=== PATIENT | male | born 1950 | race Caucasian/White ===

== ENCOUNTER 2023-01-21 10:07 | Emergency (ER) | payer MEDICARE, OTHER, SELFPAY ==
[2023-01-21] VITALS (19 sets, daily range): BP systolic 124–151; BP diastolic 75–98; PULSE 50–66; RESP 16; TEMP 36.6; O2SAT 94–99; BMI 29.0
--- NOTE | 2023-01-21 10:48 | ED_ITS ---
HPI - General Adult General Chief complaint: Chest Pain Stated complaint: lightheaded, tight chest- heart problems in past Time Seen by Provider: 01/21/23 10:48 History of Present Illness HPI narrative: Pt reports lightheadedness x1 week. Tightness/ heaviness in chest. Some SOB with exertion. Hx of 2 stents , states last stent placement had subtle symptoms 72-year-old man presenting to the emergency department with concern of intermittent chest tightness. Can be a little more short of breath with exertion now. No weight changes. He has been feeling a little lightheaded intermittently over the last week maybe 2. History of ?inner ear problem? years ago. Does have a history of cardiac stents. Not feeling sense of irregular heartbeats but prior to my seeing him I do note some PACs on monitor. These appear to be present and asymptomatic during our conversation. Is congested but he says this is relatively chronic with some postnasal drip. Was seen by his hematologist oncologist earlier this year with unremarkable cardiac ultrasound; admittedly was not a stress echo. Apparently need for prior stenting was determined ultimately by angiogram with normal stress echo and had more significant findings on coronary CT. No fever. No cough. With further reflection symptoms were worse when he bent over at least a symptom of lightheadedness, not dizziness. This sensation of chest pressure really though began today it is not much but given subtle presentation before is understandably concerned. Related Data Home Medications Medication Instructions Recorded Confirmed atorvastatin 40 mg tablet 40 mg PO QDAY 09/23/22 01/18/23 pantoprazole 40 mg tablet,delayed 40 mg PO QDAY 09/23/22 01/18/23 release Allergies Allergy/AdvReac Type Severity Reaction Status Date / Time No Known Drug Allergies Allergy Verified 01/18/23 11:19 Review of Systems Status of ROS: Reports: 6 or more systems reviewed and unremarkable except as noted in History and below [facility] Medical History Arthritis ?M19.90 - Unspecified osteoarthritis, unspecified site (ICD-10) Elevated cholesterol ?E78.00 - Pure hypercholesterolemia, unspecified (ICD-10) GERD (gastroesophageal reflux disease) ?K21.9 - Gastro-esophageal reflux disease without esophagitis (ICD-10) Chest pain ?R07.9 - Chest pain, unspecified (ICD-10) Surgical History History of appendectomy ?Z90.49 - Acquired absence of other specified parts of digestive tract (ICD- 10) History of cholecystectomy ?Z90.49 - Acquired absence of other specified parts of digestive tract (ICD- 10) H/O heart artery stent ?Z95.5 - Presence of coronary angioplasty implant and graft (ICD-10) H/O right knee surgery ?Z98.890 - Other specified postprocedural states (ICD-10) History of left hip replacement (~01/2021) ?Z96.642 - Presence of left artificial hip joint (ICD-10) Family History Father Parkinson disease Social History Smoking Status: Never smoker Do you use any of these nicotine containing products: None Second hand tobacco smoke exposure: No How often do you have a drink containing alcohol: 2-3 times a week How many standard drinks containing alcohol do you have on a typical day: 3 or 4 How often do you have six or more drinks on one occasion: Never AUDIT-C Alcohol total score: 4 Non-prescribed substance use: denies use Exam Narrative: Exam Narrative: Is pleasant. NAD. Quite calm actually. Of good energy. Congested timbre. Cranial nerves 2-12 intact. Pupils are 2-3 mm and equal. Briskly reactive and accommodating. TMs clear. Oropharynx is unremarkable. No facial swelling erythema or apparent tenderness. Lungs are clear. Heart in slow rate and regular rhythm. Intermittent ectopy. Abdomen is soft and nontender. Moving all extremities without difficulty; with good strength. He is well- perfused. Extremities are without edema. Const: Vital Signs, click to edit/add: Vital Signs - 24 hr 01/21/23 10:14 01/21/23 10:22 01/21/23 10:30 Temperature 97.9 F Pulse Rate 56 L 54 L Pulse Rate [Pulse Oximeter] 55 L Pulse Rate [orthos tatic lying] Pulse Rate [orthos tatic sitting] Pulse Rate [orthos tatic standing] Respiratory Rate 16 Blood Pressure Blood Pressure [Ri ght Upper Arm] 151/83 H Blood Pressure [or thostatic lying] Blood Pressure [or thostatic sitting] Blood Pressure [or thostatic standing ] Pulse Oximetry 98 98 99 Oxygen Delivery Me thod Room Air 01/21/23 10:45 01/21/23 11:00 01/21/23 11:01 Temperature Pulse Rate 55 L 54 L 51 L Pulse Rate [Pulse Oximeter] Pulse Rate [orthos tatic lying] Pulse Rate [orthos tatic sitting] Pulse Rate [orthos tatic standing] Respiratory Rate Blood Pressure 134/80 Blood Pressure [Ri ght Upper Arm] Blood Pressure [or thostatic lying] Blood Pressure [or thostatic sitting] Blood Pressure [or thostatic standing ] Pulse Oximetry 97 96 97 Oxygen Delivery Me thod 01/21/23 11:15 01/21/23 11:30 01/21/23 11:45 Temperature Pulse Rate 55 L 53 L 58 L Pulse Rate [Pulse Oximeter] Pulse Rate [orthos tatic lying] Pulse Rate [orthos tatic sitting] Pulse Rate [orthos tatic standing] Respiratory Rate Blood Pressure Blood Pressure [Ri ght Upper Arm] Blood Pressure [or thostatic lying] Blood Pressure [or thostatic sitting] Blood Pressure [or thostatic standing ] Pulse Oximetry 96 97 97 Oxygen Delivery Me thod 01/21/23 12:00 01/21/23 12:02 01/21/23 12:17 Temperature Pulse Rate 59 L 56 L 53 L Pulse Rate [Pulse Oximeter] Pulse Rate [orthos tatic lying] Pulse Rate [orthos tatic sitting] Pulse Rate [orthos tatic standing] Respiratory Rate Blood Pressure 133/78 Blood Pressure [Ri ght Upper Arm] Blood Pressure [or thostatic lying] Blood Pressure [or thostatic sitting] Blood Pressure [or thostatic standing ] Pulse Oximetry 98 98 97 Oxygen Delivery Me thod 01/21/23 12:30 01/21/23 12:35 01/21/23 12:39 Temperature Pulse Rate 56 L 54 L 61 Pulse Rate [Pulse Oximeter] Pulse Rate [orthos tatic lying] Pulse Rate [orthos tatic sitting] Pulse Rate [orthos tatic standing] Respiratory Rate Blood Pressure 136/77 125/98 H Blood Pressure [Ri ght Upper Arm] Blood Pressure [or thostatic lying] Blood Pressure [or thostatic sitting] Blood Pressure [or thostatic standing ] Pulse Oximetry 98 97 99 Oxygen Delivery Me thod 01/21/23 12:42 01/21/23 12:45 01/21/23 12:45 Temperature Pulse Rate 66 57 L Pulse Rate [Pulse Oximeter] Pulse Rate [orthos tatic lying] 50 L Pulse Rate [orthos tatic sitting] 64 Pulse Rate [orthos tatic standing] 62 Respiratory Rate Blood Pressure 125/75 Blood Pressure [Ri ght Upper Arm] Blood Pressure [or thostatic lying] 136/77 Blood Pressure [or thostatic sitting] 125/98 H Blood Pressure [or thostatic standing ] 125/75 Pulse Oximetry 97 94 Oxygen Delivery Me thod 01/21/23 13:00 01/21/23 13:02 Temperature Pulse Rate 55 L 56 L Pulse Rate [Pulse Oximeter] Pulse Rate [orthos tatic lying] Pulse Rate [orthos tatic sitting] Pulse Rate [orthos tatic standing] Respiratory Rate Blood Pressure 124/82 Blood Pressure [Ri ght Upper Arm] Blood Pressure [or thostatic lying] Blood Pressure [or thostatic sitting] Blood Pressure [or thostatic standing ] Pulse Oximetry 97 97 Oxygen Delivery Me thod Documenting provider has reviewed patient's vital signs: yes Course Vital Signs Vital signs: Initial Vital Signs Temperature 97.9 F 01/21/23 10:14 Temperature Source Temporal Artery Scan 01/21/23 10:14 Pulse Rate 55 L 01/21/23 10:14 Respiratory Rate 16 01/21/23 10:14 Blood Pressure 151/83 H 01/21/23 10:14 Blood Pressure Mean 105 01/21/23 10:14 Blood Pressure Position Sitting 01/21/23 10:14 Pulse Oximetry 98 01/21/23 10:14 Oxygen Delivery Method Room Air 01/21/23 10:14 Vital Signs Temperature 97.9 F 01/21/23 10:14 Pulse Rate 55 L 01/21/23 10:14 Respiratory Rate 16 01/21/23 10:14 Blood Pressure 151/83 H 01/21/23 10:14 Pulse Oximetry 98 01/21/23 10:14 Oxygen Delivery Method Room Air 01/21/23 10:14 Temperature 97.9 F 01/21/23 10:14 Pulse Rate 56 L 01/21/23 13:02 Respiratory Rate 16 01/21/23 10:14 Blood Pressure 124/82 01/21/23 13:02 Pulse Oximetry 97 01/21/23 13:02 Oxygen Delivery Method Room Air 01/21/23 10:14 Medical Decision Making MDM Narrative Medical decision making narrative: Primary concern of arrhythmia or possible cardiac ischemic event. I doubt CVA. I think it is reasonable to check labs and monitor on aquaculture farmer for a time. Will look at chemistries as well. Look for pneumonia, pneumothorax, evidence of pulmonary embolus. Orthostatically symptomatic? Having some PACs on monitor though I am not convinced these are symptomatic. Bradycardic as noted. Orthostatics were done and normal. No clear evidence otherwise of cardiovascular ischemic injury. Chest x-ray reviewed by me is with normal cardiac silhouette, no infiltrate or pneumothorax. I think it is likely that congestive symptoms are playing a role in some of these symptoms. Overall well during time in the emergency department. See patient discharge plan Lab Data Lab results reviewed: Yes I reviewed the patient's lab results Labs: Lab Results 01/21/23 01/21/23 Range/Units 10:44 10:58 WBC 5.96 (4.50-11.00) K/uL RBC 4.90 (4.30-5.90) m/uL Hgb 15.2 (13.5-17.5) gm/dL Hct 45.2 (37.0-53.0) % MCV 92 (80-100) fL MCH 31 (26-34) pg MCHC 34 (32-36) gm/dL RDW Coeff of Jeanette 12.2 (11.5-15.5) % Plt Count 323 (140-440) K/uL Neut % (Auto) 64.2 (42.0-72.0) % Lymph % (Auto) 24.3 (20-44) % Lane % (Auto) 9.2 (0.0-11.0) % Eos % (Auto) 1.8 (0.0-7.0) % Baso % (Auto) 0.5 (0.0-3.0) % Neut # (Auto) 3.82 (1.7-7.0) K/uL Lymph # (Auto) 1.45 (0.90-2.90) K/uL Lane # (Auto) 0.50 (0.00-0.90) K/UL Eos # (Auto) 0.11 (0.00-0.50) K/uL Baso # (Auto) 0.03 (0.00-0.30) K/uL Abs Immat Gran (auto) 0.00 (0.00-0.30) K/uL Imm/Tot Granulo (auto) 0.0 % D-Dimer Quant (PE/DVT) 0.42 (0.00-0.50) ug/ml Sodium 138 (135-149) mmol/L Potassium 4.2 (3.6-5.1) mmol/L Chloride 104 (96-114) mmol/L Carbon Dioxide 26 (20-32) mmol/L Anion Gap 8 (7-15) mEq/L BUN 16 (7-30) mg/dL Creatinine 0.7 (0.5-1.5) mg/dL Estimated Creat Clear 75.46 Estimated GFR 98 ml/min Glucose 113 (60-115) mg/dL Calcium 9.4 (8.4-10.6) mg/dL Magnesium 2.3 (1.5-2.6) mg/dL Troponin I < 0.01 L (0.01-0.04) ng/mL C-Reactive Protein < 0.5 L (0.5-1.0) mg/dL NT-Pro-B Natriuret Pep 203 pg/mL TSH 4.260 H (0.270-4.20) uIU/mL POC Troponin I 0.00 L (0.01-0.04) ng/ml ECG Data Attestation: I personally reviewed and interpreted this ECG as follows: (Sinus bradycardia rate of 52. No acute ischemic changes appreciated. Has been demonstrating some PACs otherwise.) Discharge Plan Discharge Clinical Impression: Lightheadedness, Premature atrial contractions, Head congestion, Chest pressure Patient Disposition: Home, Self-Care Condition: Stable Additional Instructions: Stay well-hydrated. Consider taking pseudoephedrine for drying and decongestion. Probably the 12 hour formulation is most effective. I would check in with your cardiology clinic to see if they would like to evaluate you further. Otherwise return for marked increase in lightheadedness a, dizziness, increasing shortness of breath particularly associated with increasing chest pressure. Prescriptions: No Action atorvastatin 40 mg tablet 40 mg PO QDAY pantoprazole 40 mg tablet,delayed release (DR/EC) 40 mg PO QDAY Follow Up/Referrals: Elio Shay MD [Primary Care Provider] - Stand Alone Forms: [employer] Info Instructions
[2023-01-21 10:56] LABS: Basophils Absolute Auto 0.03 K/uL (0.00-0.30); Basophils Percent Auto 0.5 % (0.0-3.0); Eosinophils Absolute Auto 0.11 K/uL (0.00-0.50); Eosinophils Percent Auto 1.8 % (0.0-7.0); Hematocrit 45.2 % (37.0-53.0); Hemoglobin* 15.2 gm/dL (13.5-17.5); Lymphocytes Absolute Auto 1.45 K/uL (0.90-2.90); Lymphocytes Percent Auto 24.3 % (20-44); Mean Corpuscular HGB Conc 34 gm/dL (32-36); Mean Corpuscular Hemoglobin 31 pg (26-34); Mean Corpuscular Volume 92 fL (80-100); Monocytes Percent Auto 9.2 % (0.0-11.0); Neutrophils Absolute Auto 3.82 K/uL (1.7-7.0); Neutrophils Percent Auto 64.2 % (42.0-72.0); Platelet Count* 323 K/uL (140-440); RDW Coefficient of Variation % 12.2 % (11.5-15.5); White Blood Count* 5.96 K/uL (4.50-11.00)
--- NOTE | 2023-01-21 11:13 | CRLHL7_ITS ---
For Patients: As a result of the Century Cures Act, medical imaging exams and procedure reports are released immediately into your electronic medical record. You may view this report before your referring provider. If you have questions, please contact your health care provider. INDICATION: Chest discomfort TECHNIQUE: Chest 1 views. COMPARISON: Chest radiograph: October 13, 2020 FINDINGS: Cardiovasculature and mediastinum: Heart size and vasculature are normal in caliber and appearance. Lungs and pleural spaces: Similar appearing elevation of the right hemidiaphragm. No sign of infiltrate or mass. No sign of pleural effusion. No pneumothorax. Bones and soft tissues: No significant findings. IMPRESSION: No acute cardiopulmonary process. Dictated by Kyler Eng MD @ 01/21/2023 12:11:56 PM (Electronically Signed)
[2023-01-21 11:15] LABS: Slide Review Reflex No
[2023-01-21 11:19] LABS: Chloride* 104 mmol/L (96-114); Potassium* 4.2 mmol/L (3.6-5.1); Sodium* 138 mmol/L (135-149)
[2023-01-21 11:20] LABS: Magnesium* 2.3 mg/dL (1.5-2.6)
[2023-01-21 11:21] LABS: Creatinine* 0.7 mg/dL (0.5-1.5); Est. Creatinine Clearance* 75.46; Estimated Glomerular Filt Rate 98 ml/min
[2023-01-21 11:22] LABS: Anion Gap 8 mEq/L (7-15); Blood Urea Nitrogen* 16 mg/dL (7-30); Carbon Dioxide* 26 mmol/L (20-32)
[2023-01-21 11:23] LABS: Calcium* 9.4 mg/dL (8.4-10.6); Glucose* 113 mg/dL (60-115)
[2023-01-21 11:24] LABS: D Dimer Quantitative* 0.42 ug/ml (0.00-0.50)
[2023-01-21 11:27] LABS: C Reactive Protein* < 0.5 mg/dL (0.5-1.0)
[2023-01-21 11:38] LABS: NT Pro B Type NatriureticPept* 203 pg/mL; Troponin I* < 0.01 ng/mL (0.01-0.04)
== END 2023-01-21 13:18 | disposition home or self-care (01) ==
PROVIDERS: Emergency Provider Family Medicine; PCP Family Medicine
DX: R42 Dizziness and giddiness (principal); I49.1 Atrial premature depolarization; R07.89 Other chest pain
CPT/HCPCS: 36415; 71045; 80048; 83735; 83880; 84443; 84484; 85025; 85379; 86140; 93005; 99284

== ENCOUNTER 2023-01-26 09:05 | Outpatient (CLI) | payer MEDICARE, OTHER, SELFPAY ==
--- NOTE | 2023-01-26 09:15 | CRLHL7_ITS ---
For Patients: As a result of the Century Cures Act, medical imaging exams and procedure reports are released immediately into your electronic medical record. You may view this report before your referring provider. If you have questions, please contact your health care provider. Indication: Right hip pain Procedure : Informed consent was obtained. The site was marked. Time-out was performed. The skin of the right hip was cleansed with ChloraPrep. A sterile drape was placed. 8 cc of 1 percent lidocaine was administered for superficial anesthesia. Subsequently a 22 gauge spinal needle was introduced into the right hip joint under intermittent fluoroscopic guidance. Subsequently 7 cc 1 percent lidocaine and 2 cc 40 milligram/cc Depo-Medrol injected into the right hip joint. The needle was removed and hemostasis achieved with direct pressure. A dressing was placed. The patient tolerated the procedure well without immediate complication. Total fluoroscopy time 7 seconds. Impression: Successful fluoroscopically guided right hip injection with 80 milligrams of Depo-Medrol. Dictated by Samir Singh MD @ 01/26/2023 10:34:34 AM (Electronically Signed)
== END 2023-01-26 09:06 | disposition home or self-care (01) ==
LOC: RAD 09:05
PROVIDERS: PCP Family Medicine; Visit Provider Orthopaedic Surgery Sports Medicine
DX: M16.11 Unilateral primary osteoarthritis, right hip (principal)
CPT/HCPCS: 20610; 77002; J1030; Q9966

== ENCOUNTER 2023-05-11 07:11 | Day surgery (SDC) | payer MEDICARE, OTHER, SELFPAY ==
[2023-05-11] VITALS (26 sets, daily range): BP systolic 106–161; BP diastolic 52–95; PULSE 44–72; RESP 16–18; TEMP 35.6–36.7; O2SAT 91–100; BMI 30.2
--- NOTE | 2023-05-11 07:51 | W.PM.H&PU ---
History & Physical Update History & Physical Update H&P Reviewed and patient assessed: No changes noted
--- NOTE | 2023-05-11 07:52 | XR_ITS ---
Patient: ALFREDA RAYGOZA Facility:?[facility] Patient ID:?[id number] Site Patient ID:?[id number]. Site :?[id number] Study:?XRay-Hip Right POST OP-05/11/2023 3:55:33 PM Ordering Physician:VALE Final Report: Indication: Postop Technique: AP hip centered pelvis and lateral view right hip Findings/Impression: Hardware from a right total hip arthroplasty is in satisfactory position. Bone alignment is normal. No sign of acute fracture. Postop changes are within normal limits. Dictated by Samir Singh MD @ 05/12/2023 8:57:33 AM Signed by:?Samir Singh MD @05/12/2023 8:57:33 AM (Electronic Signature)
[2023-05-11] MEDS: ACETAMINOPHEN 500 MG TABLET 1000 MG PO ×3 (08:00→21:37)
[2023-05-11] MEDS: OXYCODONE (CR) 10 MG TAB.ER.12H PO (08:00)
[2023-05-11] MEDS: SODIUM CHLORIDE 0.9 % (FLUSH) 10 ML SYRINGE IVF (08:16)
[2023-05-11] MEDS: LACTATED RINGERS 1000 ML 1,000 ML 100 ML IV ×2 (08:16→11:05)
[2023-05-11] MEDS: MIDAZOLAM HCL 1 MG/ML inj IVP (09:12)
[2023-05-11] MEDS: fentaNYL 100 MCG/2 ML inj IVP (09:12)
--- NOTE | 2023-05-11 09:15 | XR_ITS ---
Patient: ALFREDA RAYGOZA Facility:?[facility] Patient ID:?[id number] Site Patient ID:?[id number]. Site :?[id number] Study:?XRay-Hip Right INTRAOP-05/11/2023 12:26:16 PM Ordering Physician:BROOKLYN Final Report: Indication: Hip replacement surgery Technique: AP hip fluoroscopic images. Fluoroscopy time 39.7 seconds. Findings/Impression: Hardware from a right total hip arthroplasty is in satisfactory position. Dictated by Samir Singh MD @ 05/11/2023 12:38:01 PM Signed by:?Samir Singh MD @05/11/2023 12:38:01 PM (Electronic Signature)
--- NOTE | 2023-05-11 09:50 | SUR.PREOP ---
TIME?OUT:?0911 PT/Elli Rogers RN/Dr. Bertin MDA?VERIFICATION?OF?SURGICAL?SITE right hip,?PROCEDURE,?AND?CONSENT OBTAINED?PRIOR?TO?INVASIVE?PROCEDURE.
[2023-05-11] MEDS: CEFAZOLIN 2 GM in 0.9 % SODIUM CHLORIDE Mini-bag 100 ML IVPB ×2 (10:30→16:25)
[2023-05-11] MEDS: TRANEXAMIC ACID 100 MG/ML INJ 1000 MG IV (10:33)
--- NOTE | 2023-05-11 12:22 | PM.ORPRC ---
Procedure Note Date of procedure: 05/11/23 Procedure: PREOPERATIVE DIAGNOSIS: 1. Right hip osteoarthritis, severe, primary POSTOPERATIVE DIAGNOSIS: 1. Right hip osteoarthritis, severe, primary PROCEDURE: 1. Right total hip arthroplasty-anterior approach 2. 76280 - intraoperative fluoroscopy up to 1 hour. SURGEON: Kenrick Giraldo MD. CONSULTING HR PROFESSIONAL: Addi Mcclellan PA-C; COLLEEN Schroeder - Of note, a skilled hotel assistant general manager was critical for this case to aid in patient positioning, tissue retraction, limb manipulation/positioning, and closure. ANESTHESIA: General endotracheal anesthetic EBL: 400 mL IMPLANTS: DePuy J&J uncemented total hip [place] cup size 54, hole eliminator, +0 neutral liner Actis stem, standard offset, size 9 +5 mm ceramic 36 mm head COMPLICATIONS: None evident INDICATIONS: The patient is a pleasant 73-year-old male who has experienced severe right hip pain and difficulty bearing weight. Workup included x-rays which revealed severe osteoarthrosis in the hip. Given the deformity, the dysfunction, and the pain, as well as the failure of nonoperative management, recommendation was made for surgery. FINDINGS: Full-thickness chondral loss throughout the femoral head especially superiorly as well as acetabulum. Osteophytosis around acetabulum perimeter as well as femoral head/neck junction small effusion upon entering the joint. DESCRIPTION OF PROCEDURE: Following a thorough discussion of risks, benefits, and alternatives consent was obtained and the right hip was marked. The patient was brought to the operating room and placed supine on the operating table. Induction of anesthesia was undertaken. 2 g IV Ancef and 1 g tranexamic acid was administered within 1 hr of incision preoperatively. Proper time-out was performed identifying proper patient, site, procedure. The operative extremity was prepped and draped in the appropriate sterile fashion using ChloraPrep after the patient was positioned on the [place] table with head in neutral alignment and all bony prominences well padded. C-arm fluoroscopic imaging was utilized to confirm proper pelvis rotation and position, and to get true AP films of both the contralateral left, and the affected right hip. This is for comparison. A longitudinal incision was made starting approximately 1 cm distal to the ASIS, and 3-4 cm lateral. The incision was extended distally aiming toward the lateral border the patella. Sharp incision through skin and bovie cautery through the subcutaneous tissue allowed identification of the TFL fascia. This was sharply divided, and the fascia bluntly released from the muscle fibers as we dissected medial. Upon coming to the medial border, we were able to retract the TFL laterally, and penetrated the deeper fascia and identify the crossing circumflex vessels. These were ligated/cauterized. The rectus was elevated from the capsule, and retractors placed laterally and medially along the femoral neck to help with visualization of the capsule. We then performed an inverted T capsulotomy. The capsule was tagged for later repair. Retractors were placed inside the capsule. The femoral neck was visualized after releasing medially down to the lesser trochanter, along the saddle laterally, and up onto the acetabulum. The femoral neck cut was made in line with our preoperative templating. The head was removed in a single piece, and sized. We turned our attention to acetabular preparation. Initially, the labrum was resected from around the perimeter, the pulvinar was excised, allowing us to visualize the false wall. We started the reaming with a 43 mm reamer. This was medialized down to the true wall. We then enlarged our reamers sequentially up to one size less than the selected cup size. We trialed at the same size and found it to have an excellent fit. The selected cup was then opened, inserted, and impacted in line with the goal of 40? of abduction, and 20-25? of anteversion. This was confirmed on C-arm fluoroscopic imaging to be in the appropriate/goal position. Once the cup was placed we placed a hole eliminator and a liner consistent with preop planning. Attention was turned to the femoral preparation. The limb was extended, externally rotated, and adducted. The posteromedial capsule was released, as retractors were placed allowing excellent access to the proximal femur. Initially a box sealing machine operator was followed by canal finder followed by various broaches. We broached sequentially up to the size noted above, found it to have excellent rotational control, and trialing various heads and necks, revealed that appropriate neck offset, and the above noted head size provided the greatest stability, and anabaptism of length, and offset. C-arm fluoroscopic imaging confirmed position of the stem, as well as leg lengths, which were compared with the pre procedure all fluoroscopic images. Trial implants were removed, the real femoral stem inserted, as was the appropriate head. After reducing, the leg was placed through range of motion and stability was confirmed anterior, posterior, and lateral. A 3 min Betadine soak was then performed, and thorough irrigation with normal saline followed. Closure of the capsule was performed with #1 PDS. Bleeding was confirmed to be controlled at this stage, and the TFL fascia was closed with #0 strata fix. Subcutaneous, and subcuticular closure was performed with 2-0 Vicryl and 4-0 Monocryl, respectively. Dressings were applied, and the patient was awoken from anesthesia and transferred the PACU in stable condition. A skilled hotel assistant general manager was critical for this case to aid in patient positioning, tissue retraction, acetabular and proximal femoral exposure, limb manipulation/positioning, dislocation/relocation, patient safety, and closure. PLAN: 1. Weight bear as tolerated operative extremity. 2. 23 hr perioperative antibiotics. 3. Ice. 4. PT/OT consults for ambulation assistance/mobility education. 5. Social work consult for discharge planning. 6. DVT prophylaxis with at SCDs, Zaid Vinode, and Xarelto x5 days followed by aspirin for a total of 1 month.
--- NOTE | 2023-05-11 12:24 | W.ANESCHARGE ---
Anesthesia Charges Start Date/Time Anesthesia Start Date: 05/11/23 Anesthesia Start Time: 10:17 Stop Date/Time Anesthesia Stop Date: 05/11/23 Anesthesia Stop Time: 12:59 Summary Extremes of Age - Over 70 or under 1: MDA
--- NOTE | 2023-05-11 12:25 | P.NB_ITS ---
Nerve Block Nerve Block Time Seen by Provider: 09:11 Date Seen: 05/11/23 Type of block requested by surgeon for post-operative analgesia: BRENT/LFCN Side: right Time out performed: Yes Verification of patient name: Yes Verification of date of : Yes Site marking: site marked Name of person performing procedure: Bertin Continuous monitoring Was continuous monitoring of O2 sat, B/P, local area network systems adminstrator, recorded every 15 minutes?: Yes Procedure Checklist: sterile prep, needles and gloves Ultrasound guided. Images saved: Yes Medications given in 5ml increments after negative aspiration: Ropivicaine %: 0.5 mL: 30 Needle gauge: 20 Decadron (mg): 10 Precedex (mcg): 25 Patient tolerated procedure well: Yes Additional comments: Needle noted below psoas tendon needle noted adjacent to LFCN Block Charges Block Charge (with Pro Fee): Other Periph Nerve Block Use of Ultrasound Machine for Block: Yes- US Guidance/pain block
--- NOTE | 2023-05-11 13:03 | W.ANESCHARGE ---
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
[2023-05-11] MEDS: HYDROmorphone 0.5 mg/0.5 ml inj IVP ×2 (13:14→14:57)
--- NOTE | 2023-05-11 15:44 | PM.IMCN1 ---
Date of Consult Patient: Ricardo Patient Consult date: 05/11/23 Requesting Physician: Orthopedics Primary Care Provider: Elio Sahy MD Consult Narrative Reason for consult: bradycardia Narrative: Theo De La Garza is a 73 year old male with a h/o CAD who underwent an elective RTHA today by Dr. Giraldo for severe osteoarthritis. Postoperatively he is noted to have bradycardia. He was asymptomatic while sitting in the chair, but a little dizzy while getting back into bed for the EKG. His HR at baseline (from previous records at our hospital and [facility] records) is 50's to 60's and he is not on any rate slowing medications. He had an outpatient cardiology visit on 01/26/24 for palpitations and chest discomfort. He had a Kardia device which had a question of atrial fibrillation. He then had coronary CT angiogram and Zio patch peer CO pads demonstrated primarily sinus rhythm with an average BG of 63 beats per minute, 98 episodes of supraventricular tachycardia lasting at the most 14.3 seconds with occasional ectopy. However, he triggered his device 5 times during sinus rhythm and with ectopy, but not with any of the episodes of supraventricular tachycardia. His coronary CT angiogram demonstrated patent proximal and mid left anterior descending artery stents with otherwise no significant obstructive disease. His aortic sinus was 41 x 40 x 39 mm. His personal fitness manager, Dr. Bowers, spoke with the patient about these results and discuss the use of low-dose beta-blockers, however noted that he had no symptoms of SVT and with a low heart rate he had a higher risk of side effects from them. The patient opted for no treatment at that time. Review of Systems Status of ROS: Reports: 10 or more systems reviewed and unremarkable except as noted in History and below [facility] Medical History (Updated 05/11/23 @ 16:15 by Kelly Jones MD) Esophageal stenosis ?K22.2 - Esophageal obstruction (ICD-10) Coronary artery disease ?I25.10 - Atherosclerotic heart disease of [place] coronary artery without angina pectoris (ICD-10) BPH (benign prostatic hyperplasia) ?N40.0 - Benign prostatic hyperplasia without lower urinary tract symptoms (ICD-10) Arthritis ?M19.90 - Unspecified osteoarthritis, unspecified site (ICD-10) Elevated cholesterol ?E78.00 - Pure hypercholesterolemia, unspecified (ICD-10) GERD (gastroesophageal reflux disease) ?K21.9 - Gastro-esophageal reflux disease without esophagitis (ICD-10) Chest pain ?R07.9 - Chest pain, unspecified (ICD-10) Surgical History (Updated 05/11/23 @ 16:12 by Kelly Jones MD) S/P total right hip arthroplasty ?Z96.641 - Presence of right artificial hip joint (ICD-10) History of appendectomy ?Z90.49 - Acquired absence of other specified parts of digestive tract (ICD-10) History of cholecystectomy ?Z90.49 - Acquired absence of other specified parts of digestive tract (ICD-10) H/O heart artery stent ?Z95.5 - Presence of coronary angioplasty implant and graft (ICD-10) H/O right knee surgery ?Z98.890 - Other specified postprocedural states (ICD-10) History of left hip replacement (~01/2021) ?Z96.642 - Presence of left artificial hip joint (ICD-10) Family History (Updated 05/11/23 @ 16:01 by Kelly Jones MD) Father Parkinson disease Mother Atrial fibrillation Dementia Social History (Updated 05/11/23 @ 16:05 by Kelly Jonse MD) Narrative: Retired from [place] [employer]. Denies tobacco use. Drinks 1-2 alcoholic drinks once a week. Denies recreational drug use. What is your current living situation?: I presently have a place to live In the past 12 months, utilities in danger of being shut off: no In past 12 months, lack of transportation kept you from medical appts, meetings, work, or getting things needed for daily living: no In the past 12 mos, have been you worried that your food would run out before you had money to buy more?: never true In the past 12 mos, the food you bought just didn't last and you didn't have money to buy more?: never true Smoking Status: Never smoker Do you use any of these nicotine containing products: None Second hand tobacco smoke exposure: No How often do you have a drink containing alcohol: 2-3 times a week How many standard drinks containing alcohol do you have on a typical day: 1 or 2 How often do you have six or more drinks on one occasion: Never AUDIT-C Alcohol total score: 3 Non-prescribed substance use: denies use Caffeine: No How often does anyone, including family, friends and others, physically hurt you: never How often does anyone, including family, friends and others, insult or talk down to you: never How often does anyone, including family, friends and others, threaten you with harm: never How often does anyone, including family, friends and others, scream or curse at you: never Meds Home Medications and Allergies Home Medications Medication Instructions Recorded Confirmed Type atorvastatin 40 mg tablet 40 mg PO HS 09/23/22 05/11/23 History pantoprazole 40 mg tablet,delayed 40 mg PO QDAY 09/23/22 05/11/23 History release aspirin 81 mg chewable tablet 81 mg PO DAILY 05/11/23 05/11/23 History cholecalciferol (vitamin D3) 50 50 mcg PO DAILY 05/11/23 05/11/23 History mcg (2,000 unit) capsule coenzyme Q10 100 mg capsule 200 mg PO DAILY 05/11/23 05/11/23 History niacin 100 mg tablet 100 mg PO DAILY 05/11/23 05/11/23 History Allergies Allergy/AdvReac Type Severity Reaction Status Date / Time No Known Drug Allergies Allergy Verified 05/11/23 07:30 Exam Narrative: Exam Narrative: General: No acute distress. Awake alert oriented x3. HEENT: Normocephalic atraumatic, pupils equally round and reactive to light and accommodation. Oropharynx clear. Mucous membranes are dry. No cervical lymphadenopathy, thyromegaly or carotid bruits. No JVD. Cardiovascular: Bradycardic, regular. No murmurs, gallops, or rubs. Chest: No increased work of breathing. Clear to auscultation bilaterally. No crackles or wheezes. Abdomen: Bowel sounds present. Soft, nondistended, nontender. No hepatosplenomegaly or masses. Extremities: Right hip bandage is clean, dry, and intact. No bruising or swelling around the bandage. No edema, no cyanosis or clubbing. Skin: Mild pallor. No jaundice, no rashes. Const: Vital Signs, click to edit/add: Vital Signs - 24 hr 05/11/23 08:13 05/11/23 09:12 05/11/23 09:20 Temperature 97.9 F Pulse Rate 60 53 L 50 L Respiratory Rate 16 16 16 Blood Pressure 125/95 H 145/78 H 110/66 Pulse Oximetry 97 98 95 Oxygen Delivery Me thod Room Air Nasal Cannula Nasal Cannula Oxygen Flow Rate 2 2 Fraction of Inspir ed Oxygen 05/11/23 09:30 05/11/23 12:55 05/11/23 13:00 Temperature 96.7 F L Pulse Rate 47 L 49 L 49 L Respiratory Rate 16 16 16 Blood Pressure 106/61 129/78 116/74 Pulse Oximetry 96 94 98 Oxygen Delivery Me thod Nasal Cannula Nasal Cannula Oxygen Flow Rate 2 2 Fraction of Inspir ed Oxygen 94 05/11/23 13:05 05/11/23 13:10 05/11/23 13:15 Temperature Pulse Rate 45 L 46 L 44 L Respiratory Rate 16 16 16 Blood Pressure 133/78 131/75 129/70 Pulse Oximetry 100 99 98 Oxygen Delivery Me thod Oxygen Flow Rate 2 Fraction of Inspir ed Oxygen 100 05/11/23 13:20 05/11/23 13:25 05/11/23 13:30 Temperature 96.6 F L 97.2 F L Pulse Rate 46 L 50 L 48 L Respiratory Rate 16 16 16 Blood Pressure 139/71 129/64 126/67 Pulse Oximetry 100 97 94 Oxygen Delivery Me thod Oxygen Flow Rate Fraction of Inspir ed Oxygen Assessment and Plan Assessment and plan (1) Bradycardia: Problem comment: I suspect this is a mixture of history of low-grade bradycardia, anesthesia, and vasovagal response from getting up in the chair. EKG is reassuring. Monitor on telemetry. Give a fluid bolus. Monitor symptoms and blood pressure overnight. Status: Acute (2) S/P total right hip arthroplasty: Problem comment: 05/11/23 Kristal - routine postop care - VTE prophylaxis with rivaroxaban for 5 days then transitioning to aspirin twice a day for month Status: Acute (3) Osteoarthritis of right hip: Problem comment: mild-moderate, with areas of full-thickness cartilage loss Status: Chronic (4) Coronary artery disease: Problem comment: 2 stents placed in his coronary arteries in 2016 - asymptomatic. Recommend daily low-dose aspirin even while on Xarelto in this postoperative period. Status: Chronic
[2023-05-11] MEDS: ONDANSETRON 2 MG/ML inj 4 MG IVP (16:31)
[2023-05-11] MEDS: LACTATED RINGERS 1000 ML 1,000 ML IV (16:33)
--- NOTE | 2023-05-11 19:41 | PC.NURSE ---
End of Shift: Patient alert and oriented x4. VSS, PRN dilauded administered x1 w/relief. Patient on Tele, Sinus [place] w/occasional PVC's. Dressing to right hip, C/D/I. Patient tolerating a reg. diet. PRN zofran administered x1 w/relief. Patient up to chair for meals and ambulating to BR w/walker and GB. Voiding regularly.
[2023-05-11] MEDS: SENNOSIDES 1 TAB TABLET 2 TAB PO (21:38)
[2023-05-11] MEDS: ATORVASTATIN CALCIUM 40 MG TABLET PO (21:38)
[2023-05-11] MEDS: HYDROCODONE-ACETAMIN 5-325 MG 1 TAB PO (21:39)
[2023-05-12] MEDS: CEFAZOLIN 2 GM in 0.9 % SODIUM CHLORIDE Mini-bag 100 ML IVPB (00:27)
[2023-05-12] MEDS: HYDROCODONE-ACETAMIN 5-325 MG 1 TAB PO ×3 (01:41→10:08)
[2023-05-12 02:00] VITALS: BP 132/66; PULSE 79; RESP 18; O2SAT 95
--- NOTE | 2023-05-12 05:10 | PC.NURSE ---
Patient pleasant, alert and oriented. Assist of one with walker. Tolerating regular diet. Given PRN [place] for pain rated 4-6/10. Dressing to right hip clean, dry and intact.?
[2023-05-12] MEDS: OMEPRAZOLE 20 MG CAPSULE DR 40 MG PO (06:28)
[2023-05-12 07:00] VITALS: BP 133/87; PULSE 68; RESP 16; TEMP 36.8; O2SAT 95
[2023-05-12 07:03] LABS: Basophils Percent Auto 0.1 % (0.0-3.0); Eosinophils Percent Auto 0.1 % (0.0-7.0); Hematocrit 35.5 % (37.0-53.0); Hemoglobin* 12.2 gm/dL (13.5-17.5); Immature Granulocytes Pct Auto 0.2 %; Lymphocytes Percent Auto 9.7 % (20-44); Mean Corpuscular HGB Conc 34 gm/dL (32-36); Mean Corpuscular Hemoglobin 32 pg (26-34); Mean Corpuscular Volume 92 fL (80-100); Monocytes Percent Auto 12.3 % (0.0-11.0); Neutrophils Percent Auto 77.6 % (42.0-72.0); Platelet Count* 286 K/uL (140-440); RDW Coefficient of Variation % 12.3 % (11.5-15.5); Red Blood Count 3.85 m/uL (4.30-5.90); White Blood Count* 11.96 K/uL (4.50-11.00)
[2023-05-12 07:08] LABS: Slide Review Reflex No
[2023-05-12 07:15] LABS: Sodium* 136 mmol/L (135-149)
[2023-05-12 07:16] LABS: Potassium* 4.4 mmol/L (3.6-5.1)
[2023-05-12 07:19] LABS: Blood Urea Nitrogen* 14 mg/dL (7-30); Creatinine* 0.6 mg/dL (0.5-1.5); Est. Creatinine Clearance* 74.35; Estimated Glomerular Filt Rate 102 ml/min
[2023-05-12 08:58] VITALS: PULSE 73
[2023-05-12] MEDS: ASPIRIN 81 MG TAB.CHEW PO (09:08)
[2023-05-12] MEDS: SENNOSIDES 1 TAB TABLET 2 TAB PO (09:08)
[2023-05-12] MEDS: COENZYME Q10 100 MG CAPSULE PO (09:08)
[2023-05-12] MEDS: RIVAROXABAN 10 MG TABLET PO (09:09)
--- NOTE | 2023-05-12 11:00 | PM.ORPN ---
Subjective Subjective Date Seen: 05/12/23 Principal diagnosis: Status postop day 1, right total hip arthroplasty - anterior approach Interval history: Patient reports doing well. Some aching discomfort right hip. No acute events over night. Pain managed with scheduled and PRN medications, ice (hydrocodone appears to work better for him due to history of mentation issues with Percocet. No recent fevers, chills, or aches; no numbness or tingling distally. DVT prophylaxis: Rivaroxaban, and continuing 81 mg aspirin once daily, bilateral knee high Zaid stockings, SCDs, walking. Denies fevers, chills, aches, N/V, CP, SOB/MARK, or lightheadedness. No flatus to date. Ortho Exam Narrative Exam Narrative: -Patient appears comfortable in reclined; no apparent acute distress. Spouse present -Alert and oriented times 3 -Operative hip swollen; soft tissues supple; no obvious erythema. Ecchymosis minimal. Warmth appropriate -Surgical dressing clean, dry, intact; no obvious drainage, no erythematous streaking peripheral to the bandage -Bilateral calves soft and supple; no significant swelling, edema, tenderness, erythema, discoloration, warmth, or palpable cords -2+ DP/PT pulses, intact dermatomes and myotomes distally (5/5 strength). Mild numbness about the lateral femoral cutaneous nerve distribution. Const Vital Signs, click to edit/add: Vital Signs - 24 hr 05/11/23 12:55 05/11/23 13:00 05/11/23 13:05 Temperature 96.7 F L Pulse Rate 49 L 49 L 45 L Pulse Rate [Pulse Oximeter] Respiratory Rate 16 16 16 Blood Pressure 129/78 116/74 133/78 Blood Pressure [Left Arm] Blood Pressure [Right Arm] Pulse Oximetry 94 98 100 Oxygen Delivery Method Nasal Cannula Oxygen Flow Rate 2 2 Fraction of Inspired Oxygen 94 100 05/11/23 13:10 05/11/23 13:15 05/11/23 13:20 Temperature Pulse Rate 46 L 44 L 46 L Pulse Rate [Pulse Oximeter] Respiratory Rate 16 16 16 Blood Pressure 131/75 129/70 139/71 Blood Pressure [Left Arm] Blood Pressure [Right Arm] Pulse Oximetry 99 98 100 Oxygen Delivery Method Oxygen Flow Rate Fraction of Inspired Oxygen 05/11/23 13:25 05/11/23 13:30 05/11/23 13:40 Temperature 96.6 F L 97.2 F L 96.0 F L Pulse Rate 50 L 48 L 48 L Pulse Rate [Pulse Oximeter] Respiratory Rate 16 16 16 Blood Pressure 129/64 126/67 133/76 Blood Pressure [Left Arm] Blood Pressure [Right Arm] Pulse Oximetry 97 94 96 Oxygen Delivery Method Room Air Oxygen Flow Rate Fraction of Inspired Oxygen 05/11/23 13:45 05/11/23 14:00 05/11/23 14:02 Temperature 96.6 F L 97.6 F 96.0 F L Pulse Rate 48 L 52 L Pulse Rate [Pulse Oximeter] 48 L Respiratory Rate 16 16 16 Blood Pressure 161/85 H 151/80 H Blood Pressure [Left Arm] Blood Pressure [Right Arm] 133/76 Pulse Oximetry 96 99 96 Oxygen Delivery Method Room Air Room Air Room Air Oxygen Flow Rate Fraction of Inspired Oxygen 05/11/23 14:15 05/11/23 14:30 05/11/23 15:00 Temperature 97.6 F 98.0 F 98.0 F Pulse Rate 48 L 47 L 56 L Pulse Rate [Pulse Oximeter] Respiratory Rate 16 16 16 Blood Pressure 117/64 130/74 Blood Pressure [Left Arm] Blood Pressure [Right Arm] Pulse Oximetry 99 96 96 Oxygen Delivery Method Room Air Room Air Room Air Oxygen Flow Rate Fraction of Inspired Oxygen 05/11/23 15:30 05/11/23 16:00 05/11/23 17:00 Temperature 98.0 F 98.0 F 98.0 F Pulse Rate 55 L 54 L 54 L Pulse Rate [Pulse Oximeter] Respiratory Rate 16 16 16 Blood Pressure 148/79 H 122/82 126/73 Blood Pressure [Left Arm] Blood Pressure [Right Arm] Pulse Oximetry 96 96 98 Oxygen Delivery Method Room Air Room Air Room Air Oxygen Flow Rate Fraction of Inspired Oxygen 05/11/23 18:00 05/11/23 19:00 05/11/23 19:00 Temperature 98.0 F 98.0 F 98.0 F Pulse Rate 61 63 Pulse Rate [Pulse Oximeter] 63 Respiratory Rate 16 16 16 Blood Pressure 140/74 H 132/52 L Blood Pressure [Left Arm] Blood Pressure [Right Arm] 132/52 L Pulse Oximetry 97 96 96 Oxygen Delivery Method Room Air Room Air Room Air Oxygen Flow Rate Fraction of Inspired Oxygen 05/11/23 23:00 05/12/23 02:00 05/12/23 07:00 Temperature 98.0 F 98.2 F Pulse Rate Pulse Rate [Pulse Oximeter] 72 79 68 Respiratory Rate 18 18 16 Blood Pressure Blood Pressure [Left Arm] 134/70 133/87 Blood Pressure [Right Arm] 132/66 Pulse Oximetry 91 95 95 Oxygen Delivery Method Room Air Room Air Room Air Oxygen Flow Rate Fraction of Inspired Oxygen 05/12/23 08:58 Temperature Pulse Rate 73 Pulse Rate [Pulse Oximeter] Respiratory Rate Blood Pressure Blood Pressure [Left Arm] Blood Pressure [Right Arm] Pulse Oximetry Oxygen Delivery Method Oxygen Flow Rate Fraction of Inspired Oxygen Assessment and Plan Assessment and plan (1) Bradycardia: Problem details: I suspect this is a mixture of history of low-grade bradycardia, anesthesia, and vasovagal response from getting up in the chair. EKG is reassuring. Monitor on telemetry. Give a fluid bolus. Monitor symptoms and blood pressure overnight. Status: Acute (2) S/P total right hip arthroplasty: Problem details: 05/11/23 Kristal - routine postop care - VTE prophylaxis with rivaroxaban for 5 days then transitioning to aspirin twice a day for 1 month. Per hospitalist, he will continue with 81mg ASA daily during rivaroxaban regimen. Status: Acute (3) Osteoarthritis of right hip: Problem details: mild-moderate, with areas of full-thickness cartilage loss Status: Chronic (4) Coronary artery disease: Problem details: 2 stents placed in his coronary arteries in 2016 - asymptomatic. Recommend daily low-dose aspirin even while on Xarelto in this postoperative period. Status: Chronic Plan - Complete 23 hour perioperative antibiotics. - PT/OT consult for education and assistance. - Social work consult for discharge planning - Prescribed analgesics as needed - DVT prophylaxis: 5 days rivaroxaban in addition to 81 mg once daily; followed by 81 mg aspirin by mouth twice daily for 25 days, bilateral knee high Zaid Hose stockings and SCDs. He will return to his normal aspirin regimen after postsurgical DVT prophylaxis is complete - Anticipation is for discharge to home with spouse 05/12/2023 if the patient remains medically stable, pain is controlled, and they are safe with mobilization.
--- NOTE | 2023-05-12 13:37 | PC.NURSE ---
Discharge - Pt alert, oriented x 4, cooperative. Pt up with standby assistance and walker/gait belt. Pt reported pain in R hip as 4/10, managed with medication per MAR with verbalized improvement. Pt tolerating RA, regular diet, fluids. Dressing CDI, pedal pulse present. IV removed with catheter intact. Pt discharged to home with spouse via wheelchair at approximately 1325.
== END 2023-05-12 13:25 | disposition home or self-care (01) ==
LOC: OR 07:13 → MEDSURG 07:15
PROVIDERS: PCP Family Medicine; Visit Provider Orthopaedic Surgery Sports Medicine
PROC: (CPT 27130; principal; 2023-05-11 09:15)
DX: M16.11 Unilateral primary osteoarthritis, right hip (principal); G89.18 Other acute postprocedural pain; R00.1 Bradycardia, unspecified; R42 Dizziness and giddiness; I25.10 Atherosclerotic heart disease of native coronary artery without angina pectoris; Z95.5 Presence of coronary angioplasty implant and graft
CPT/HCPCS: 27130; 01214; 36415; 64450; 73501; 76000; 76942; 82565; 84132; 84295; 84520; 85025; 86850; 86900; 86901; 97110; 97116; 97161; 97165; 97530; 97535; 99100; A9270; C1776; J0690; J1100; J1170; J2250; J2371; J2405; J2704; J2710; J2795; J3010; J7120

== ENCOUNTER 2023-06-14 10:14 | Outpatient (CLI) | payer MEDICARE, OTHER, SELFPAY ==
--- NOTE | 2023-06-14 10:15 | MR_ITS ---
[address] [address] Phone:?[phone] Fax:?[phone] Referring Physician Information: Kenrick Giraldo M.D. [id number] [facility] [address] Phone:?[phone] Fax:?[phone] Patient:Sammy De La Garza D.O.B:?1950 Sex:?Male Phone:?[phone] [facility] MRN:?[id number] Exam Date:?06/14/2023 EXAM: MRI of the RIGHT SHOULDER WITHOUT CONTRAST CLINICAL HISTORY: Right shoulder pain. Evaluate for rotator cuff tear. COMPARISONS: Plain radiographs 06/07/2023. TECHNICAL: MRI sequences of the right shoulder: Axials: PD, T2 Coronals: PD, STIR, T2 Sagittals: PD, T2 SEDATION: None CONTRAST: None FINDINGS: Bones: No fracture or suspicious bone marrow signal abnormality. Coracoacromial arch: Acromion: No os acromiale. Type I-II acromion. Acromiohumeral space: The bony distance is unremarkable. Acromioclavicular joint: Moderate degenerative changes with substantial distal clavicular inferior osteophytosis effacing the adjacent portion of the supraspinatus myotendinous junction. Coracoclavicular ligament: The coracoclavicular ligament is intact. Rotator cuff muscles/tendons: Supraspinatus: Interstitial delamination within and mild tendinopathy of the supraspinatus tendon. No muscular atrophy. Infraspinatus: Interstitial delamination within and slight tendinopathy of the infraspinatus tendon. No muscular atrophy. Teres minor: The teres minor tendon and muscle are intact. Subscapularis: The subscapularis tendon and muscle are intact. Labrum and glenohumeral joint: Anterior/anteroinferior labral tear is suspected with an adjacent 1.8 x 0.9 x 1.1 cm paralabral cyst although it must be noted that the labrum is not well evaluated directly because of nonarthrogram technique. Physiologic amount of joint fluid. No discrete chondral defect or subchondral bone marrow edema/cystic change is seen. No convincing evidence of capsular edema or thickening although evaluation is suboptimal because of lack of joint distention. Proximal biceps tendon, long head and short heads: The long and short heads of the proximal biceps tendon are intact. Bursae: Subacromial/subdeltoid: Mild bursitis. Subcoracoid: No convincing subcoracoid bursal thickening/bursitis. IMPRESSION: 1. Interstitial delamination within and mild tendinopathy of the supraspinatus tendon. 2. Interstitial delamination within and slight tendinopathy of the infraspinatus tendon. 3. No articular or bursal surfacing or retracted rotator cuff tendon tear. No rotator cuff muscular atrophy. 4. Anterior/anteroinferior labral tear is suspected with an adjacent 1.8 x 0.9 x 1.1 cm paralabral cyst although it must be noted that the labrum is not well evaluated directly because of nonarthrogram technique. 5. Mild subacromial/subdeltoid bursitis. 6. Moderate acromioclavicular joint osteoarthritis with substantial distal clavicular inferior osteophytosis effacing the adjacent portion of the supraspinatus myotendinous junction. 7. Intact biceps tendon. RCB Electronically signed on 06/14/2023 6:39:00 PM by Eric Jones M.D.
--- OUTSIDE RECORDS SUMMARY | 2023-06-14 10:18 | XMS_ITS | Clinical Summary ---
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 30 tablet 11 08/20/2015 Active coenzyme q10 100 mg capIndications:Mook nary artery disease involving [place] coronary artery of [place] heart, angina presence unspecified Take 1 capsule by mouth once daily. 0 05/24/2017 Active medication order composer Ultimate Prostate one tablet daily 0 05/24/2017 Active cholecalciferol (D3-2000) 2,000 unit capsule Take 2,000 Units by mouth once daily. Active niacin 100 mg tablet Take 100 mg by mouth once daily. 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 25 Tablet 2 11/05/2022 Active pantoprazole (PROTONIX) 40 mg delayed-release tabletIndications:C hronic GERD Take 1 Tablet (40 mg) by mouth once daily before a meal. 90 Tablet 4 11/05/2022 Active Active Problems Problem Noted Date Diagnosed Date Chronic GERD 11/02/2021 Esophageal stenosis 04/30/2019 Tachycardia 04/30/2019 Chest pain, atypical 06/07/2018 Hypercholesterolemia 08/19/2015 BPH (benign prostatic hyperplasia) 08/19/2015 S/P appendectomy 08/19/2015 S/P laparoscopic cholecystectomy 08/19/2015 Coronary artery disease invo lving [place] coronary artery of [place] heart with angina pectoris 08/19/2015 Overview: He had 2 stents placed in his coronary arteries in 2015. Abnormal stress echo 08/19/2015 Encounters Date Type Department Care Team Description 05/11/2023 Orders Only [facility] Scanner 1 scan: (1-Ord) CHAVEZ, XR HIP RIGHT POST OP, 05/11/2023 05/11/2023 Orders Only [facility] Scanner 1 scan: (1-Ord) CHAVEZ, HIP RT, 05/11/2023 from Last 3 Months Immunizations Name Administration Dates Next Due COVID-19 vaccine (Moderna 10 0mcg/0.5mL) PF, MDV 12/25/2020,05/18/2020,04/20/2020 Hepatitis A (Adult) 06/23/2010,06/09/2009 Hepatitis B (Adult) 09/12/2018,09/05/2017,2015 Influenza, High-dose Inactivated 01/09/2019,1103/2017 Influenza, High-dose Quadriv alent Inactivated 12/28/2022 Influenza, IIV3 (Age >=3 years) 11/24/2012,11/18 Influenza, IIV4 (=>6mos) MDV 03/15/2016 Influenza, Inactivated AIIV4 (Age 65+ Years) Preserv Free 11/02/2021,10/29/2020 Influenza, Inactivated IIV3 (Age 65+ Years) Preserv Free 10/22/2019 Pneumococcal Poly,23-Valent (Pneumovax) 10/22/19 20,01/09/2019 Pneumococcal conj 13-Valent (Prevnar 13) 018 Td (Age >=7 Years) 01/19/2021 Td, Preservative Free (age >= 7 Years) 6,06/14/1990 Tdap 06/23/2010 Zoster (Shingrix-RZV, recombinant) 08/08/2019, Family History Medical History Relation Name Comments Hypertension Brother Parkinsonism Father of this at 87 Atrial fibrillation Mother Dementia Mother alive at 101 as of 10/2022 Good Health No Family History Relation Name Status Comments Brother Father Mother Alive Social History Tobacco Use Types Packs/Day Years Used Date Smoking Tobacco: Never Smokeless Tobacco: Never Tobacco Cessation:Counseling Given: Yes Alcohol Use Standard Drinks/Week Comments Yes 2 (1 standard drink = 0.6 oz pur e alcohol) PHQ-2 Answer Date Recorded PHQ-2 TOTAL SCORE 0 11/05/2022 Social Connections Answer Date Recorded Frequency of Communication with Friends and Fami ly 0 11/03/2022 Alcohol Use Answer Date Recorded How often do you have a drink containing alcohol ? 3 03/01/2023 How many drinks containing a lcohol do you have on a typical day when you are drinking? 0 03/01/2023 How often do you have five or more drinks on one occasion? 0 03/01/2023 Financial Resource Strain Answer Date R ecorded Difficulty of Paying Living Expenses 3 11/03/2022 Difficulty of Paying Living Expenses Not on file 11/03/2022 Food Insecurity Answer Date Recorded Worried About Running Out of Food in the Last Ye ar 1 11/03/2022 Transportation Needs Answer Date Record ed Lack of Transportation (Medical) 1 11/03/2022 Housing Stability Answer Date Recorded Unable to Pay for Housing in the Last Year 1 11/03/2022 Sex and Gender Information Value Date Recorded Sex Assigned at Not on file Gender Identity Not on file Sexual Orientation Not on file Obstetrics History Last Filed Vital Signs Vital Sign Reading Time Taken Comments Blood Pressure 122/64 03/01/2023 3:00 PM ASSURANCE MANAGER Pulse 65 03/01/2023 3:00 PM ASSURANCE MANAGER Temperature 36.3 ??C (97.4 ??F) 03/01/2023 3:00 PM CS T Respiratory Rate 20 02/12/2022 8:50 AM ASSURANCE MANAGER Oxygen Saturation 96% 03/01/2023 3:00 PM ASSURANCE MANAGER Inhaled Oxygen Concentration - - Weight 104.6 kg (230 lb 8 oz) 03/01/2023 3:00 PM ASSURANCE MANAGER Height 181.6 cm (5' 11.5) 01/25/2023 4:26 PM CS T Body Mass Index 31.7 01/25/2023 4:26 PM ASSURANCE MANAGER Plan of Treatment Health Maintenance Due Date Last Done Comments Hepatitis C screening for ag e 18-79 1968 COVID-19 vaccine series (2022- season) 2022 01/13/2022, 12/25/2020, 05/18/2020, Additional history exists Influenza for age 65+ 10/23/2023 12/28/2022 , 11/02/2021, 10/29/2020, Additional history exists Depression screening for age 12+ 11/06/2023 11/05/2022, 11/05/2021, 11/03/2021, Additional history exists Medicare Wellness for age 65+ 11/06/2023 11/05/2022, 11/02/2021 BMI (ht and wt on same day) for age 18+ 01/26/2024 01/25/2023, 11/05/2022, 11/02/2021, Additional history exists Colonoscopy through age 75 06/03/2026 06/03/2016 Lipids for age 45-75 11/06/2027 11/05/2022, 11/02/2021, 08/20/2015 Tetanus booster 01/19/2031 01/19/2021, 05/0 04/2010, 09/17/2005, Additional history exists Tdap Completed 06/23/2010 Zoster (shingles) series for age 50+ Completed 08/08/2019, 03/06/2019 Pneumococcal series for age 65+ Completed 10/22/2019, 01/09/2019, 12/23/2017 Procedures Procedure Name Priority Date/Time Associated Diagnosis Comments SCAN-RADIOLOGY REPORT 05/11/2023 12:00 AM CDT SCAN-RADIOLOGY REPORT 05/11/2023 12:00 AM CDT LIPID PANEL W REFLEX MEASURED LDL Routine 11/05/2022 10:57 AM CDT Coronary artery disease involving [place] coronary artery of [place] heart with angina pectoris (HC) SCAN-COLONOSCOPY 06/03/2016 12:0 0 AM CDT from Last 3 Months or Most Recently Relevant to Health Maintenance Results * SCAN-RADIOLOGY REPORT (05/11/2023 12:00 AM CDT) Only the most recent of2 resultswithin the time period is included. Anatomical Region Laterality Modality Other Scanner OTHER * LIPID PANEL W REFLEX MEASURED LDL (11/05/2022 10:57 AM CDT) CHOLESTEROL,TOTAL 124 100 - 199 mg/dL 11/06/2022 1:03 PM CDT [facility] [employer] Comment: Cholesterol, Total Reference Ranges Desirable <200 mg/dL Borderline 200-239 mg/dL High >=240 mg/dL TRIGLYCERIDES 61 <150 mg/dL 11/06/2022 1:03 PM CDT [facility] [employer] [facility] HDL CHOLESTEROL 44 >40 mg/dL 1:03 PM CDT [facility] NON-HDL CHOLESTEROL 80 <145 mg/dl 11/06/2022 1:03 PM CDT [facility] CHOL/HDL RATIO 2.82 <4.50 11/06/2022 1:03 PM CDT [facility] LDL CHOLESTEROL 68 <=130 mg/dL 11/06/2022 1:03 PM CDT [facility] VLDL CHOLESTEROL 12 <=30 mg/dL 11/06/2022 1:03 PM CDT [facility] PROVIDER ORDERED STATUS RANDOM 11/06/2022 1:03 PM CDT [facility] Blood BLOOD SPECIMEN / Unknown Venipuncture / Unknown 11/05/2022 10:57 AM CDT 11/05/2022 10:57 AM CDT Elio Shay MD CHEMISTRY [facility] [address] [place] [address], * SCAN-COLONOSCOPY (06/03/2016 12:00 AM CDT) Scanner OTHER from Last 3 Months or Most Recently Relevant to Health Maintenance Advance Directives Documents on File Type Date Recorded Patient Postal Worker Expl anation Healthcare Directive 11/03/2021 1:39 PM HE ALTHCARE DIRECTIVE/NFLD [facility] 11/03/2021 * Full Code (Latest Code Status on File) Date Activated Date Inactivated Comments 08/19/2015 11:49 AM 08/20/2015 12:26 PM Question Answer Comments Code Status Discussion: Not Discussed Care Teams Car Rider Relationship Specialty Start Date End Date Elio Shay MD [address] [place] [address] PCP - General Family Practice 01/25/23
== END 2023-06-14 10:15 | disposition home or self-care (01) ==
LOC: MRI 10:15
PROVIDERS: PCP Family Medicine; Visit Provider Orthopaedic Surgery Sports Medicine
DX: M25.511 Pain in right shoulder (principal); S43.491A Other sprain of right shoulder joint, initial encounter; M75.51 Bursitis of right shoulder; M19.011 Primary osteoarthritis, right shoulder
CPT/HCPCS: 73221

== ENCOUNTER 2023-12-12 08:59 | Day surgery (SDC) | payer MEDICARE, OTHER, SELFPAY ==
[2023-12-08] MEDS: MIDAZOLAM HCL 1 MG/ML inj IVP (11:16)
[2023-12-08] MEDS: fentaNYL 100 MCG/2 ML inj IVP (11:16)
[2023-12-12] VITALS (15 sets, daily range): BP systolic 106–141; BP diastolic 61–99; PULSE 50–64; RESP 12–16; TEMP 36.3–36.6; O2SAT 93–97; BMI 30.8
--- OUTSIDE RECORDS SUMMARY | 2023-12-12 09:11 | XMS_ITS | Clinical Summary ---
Author Organization [employer] [facility] Address [place], [place] [address] Care Team Providers Care National Facilities Manager Name Role Phone Elio Shay MD Primary Care Provider +1- [phone] Allergies No known active allergies Medications Medication Sig Dispensed Refills Start Date End Date Status aspirin chewable 81 mg chewable tabletIndications :Coronary artery disease involving [place] coronary artery of [place] heart with angina pectoris (HC) Take 1 tablet by mouth or nasogastric tube once daily with a meal. 30 tablet 11 08/20/2015 Active coenzyme q10 100 mg capIndications:Co ronary artery disease involving [place] coronary artery of [place] heart, angina presence unspecified Take 1 capsule by mouth once daily. 0 05/24/2017 Active medication order composer Ultimate Prostate one tablet daily 0 05/24/2017 Active cholecalciferol (D3-2000) 2,000 unit capsule Take 2,000 Units by mouth once daily. Active niacin 100 mg tablet Take 100 mg by mouth once daily. Active nitroglycerin (NITROSTAT) 0.4 mg sublingual tabletIndications :Coronary artery disease involving [place] coronary artery of [place] heart with angina pectoris (HC),Chest pain, atypical Place 1 Tablet (0.4 mg) under the tongue every 5 minutes if needed for Chest Pain. 25 Tablet 2 11/05/2022 Active pantoprazole (PROTONIX) 40 mg delayed-release tabletIndications :Chronic GERD Take 1 Tablet (40 mg) by mouth once daily before a meal. 90 Tablet 4 11/05/2022 Active zinc gluconate 50 mg tablet Take 50 mg by mouth once daily. Active atorvastatin (LIPITOR) 40 mg tabletIndications :Coronary artery disease involving [place] coronary artery of [place] heart with angina pectoris (HC) Take 1 Tablet (40 mg) by mouth at bedtime. 90 Tablet 3 12/10/2023 Active atorvastatin (LIPITOR) 40 mg tabletIndications :Coronary artery disease involving [place] coronary artery of [place] heart with angina pectoris (HC) Take 1 Tablet (40 mg) by mouth at bedtime. 90 Tablet 4 11/05/2022 4 Discontinued Active Problems Problem Noted Date Diagnosed Date Chronic GERD 11/02/2021 Esophageal stenosis 04/30/2019 Tachycardia 04/30/2019 Chest pain, atypical 06/07/2018 Hypercholesterolemia 08/19/2015 BPH (benign prostatic hyperplasia) 08/19/2015 S/P appendectomy 08/19/2015 S/P laparoscopic cholecystectomy 08/19/2015 Coronary artery disease invo lving [place] coronary artery of [place] heart with angina pectoris 08/19/2015 Overview (11/02/2021): He had 2 stents placed in his coronary arteries in 2016. Abnormal stress echo 08/19/2015 Encounters Date Type Department Care Team Description 12/08/[address] [facility] [address] [place] [address] Elio Shay MD Refill Request (Atorvastatin) 11/25/2023 8:25 AM CDT Office Visit [facility] [address] [place] [address] Elio Shay MD Pre-Op Exam (Right shoulder 12/11); Immunization/Injecti on 11/25/2023 Travel 11/23/2023 Travel 11/15/2023 9:30 AM CDT Office Visit [facility] [address] [place] [address] Fabian Archer MD Follow Up (Coronary artery disease ) 11/15/2023 Travel from Last 3 Months Immunizations Name Administration Dates Next Due COVID-19 vaccine (Moderna 10 0mcg/0.5mL) ROSANGELA PRYOR 12/25/2020,05/18/2020,04/20/2020 Hepatitis A (Adult) 06/23/2010,06/09/2009 Hepatitis B (Adult) 09/12/2018,09/05/2017,2015 Influenza, High-dose Inactivated 01/09/2019,03/2017 Influenza, High-dose Quadriv alent Inactivated 12/28/2022 Influenza, IIV3 (Age >=3 years) 11/24/2012,11/18 Influenza, IIV4 (=>6mos) MDV 03/15/2016 Influenza, Inactivated AIIV4 (Age 65+ Years) Preserv Free 11/02/2021,10/29/2020 Influenza, Inactivated IIV3 (Age 65+ Years) Preserv Free 11/25/2023,10/22/2019 Pneumococcal Poly,23-Valent (Pneumovax) 10/22/19 20,01/09/2019 Pneumococcal conj [...] Communication with Friends and Fami ly 0 11/25/2023 Alcohol Use Answer Date Recorded How often do you have a drink containing alcohol ? 2 11/25/2023 How many drinks containing a lcohol do you have on a typical day when you are drinking? 0 11/25/2023 How often do you have five or more drinks on one occasion? 0 11/25/2023 Financial Resource Strain Answer Date R ecorded Difficulty of Paying Living Expenses 3 11/25/2023 Difficulty of Paying Living Expenses Not on file 11/25/2023 Food Insecurity Answer Date Recorded Worried About Running Out of Food in the Last Ye ar 1 11/25/2023 Transportation Needs Answer Date Record ed Lack of Transportation (Medical) 1 11/25/2023 Housing Stability Answer Date Recorded Unable to Pay for Housing in the Last Year 1 11/25/2023 Sex and Gender Information Value Date Recorded Sex Assigned at Not on file Gender Identity Not on file Sexual Orientation Not on file Obstetrics History Last Filed Vital Signs Vital Sign Reading Time Taken Comments Blood Pressure 122/77 11/25/2023 8:34 AM CDT Pulse 62 11/25/2023 8:34 AM CDT Temperature 36.6 ??C (97.9 ??F) 11/25/2023 8:34 AM CD T Respiratory Rate 20 02/12/2022 8:50 AM SODA DRY HOUSE OPERATOR Oxygen Saturation 98% 11/25/2023 8:34 AM CDT Inhaled Oxygen Concentration - - Weight 100.2 kg (221 lb) 11/25/2023 8:34 AM CDT Height 181.6 cm (5' 11.5) 11/25/2023 8:34 AM CD T Body Mass Index 30.4 11/25/2023 8:34 AM CDT Plan of Treatment Upcoming Encounters Date Type Department Care Team (Late st Contact Info) Description 12/29/2023 9:15 AM SODA DRY HOUSE OPERATOR Orders Only [facility] [address] [place] [address] Martin Newsome 01/10/2024 1:55 PM SODA DRY HOUSE OPERATOR Office Visit [facility] [address] [place] [address] Elio Shay MD [address] [place] [address] Health Maintenance Due Date Last Done Comments Hepatitis C screening for ag e 18-79 1968 COVID-19 vaccine series ( season) 2023 01/13/2022, 12/25/2020, 05/18/2020, Additional history exists Depression screening for age 12+ 11/06/2023 11/05/2022, 11/05/2021, 11/03/2021, Additional history exists Medicare Wellness for age 65+ 11/06/2023 11/05/2022, 11/02/2021 BMI (ht and wt on same day) for age 18+ 11/24/2024 11/25/2023, 01/25/2023, 11/05/2022, Additional history exists Colonoscopy through age 75 06/03/2026 06/03/2016 Lipids for age 45-75 11/06/2027 11/05/2022, 11/02/2021, 08/20/2015 Tetanus booster 01/19/2031 01/19/2021, 05/0 04/2010, 09/17/2005, Additional history exists Tdap Completed 06/23/2010 Zoster (shingles) series for age 50+ Completed 08/08/2019, 03/06/2019 Pneumococcal series for age 65+ Completed 10/22/2019, 01/09/2019, 12/23/2017 Influenza for age 65+ Completed 11/25/2023 , 12/28/2022, 11/02/2021, Additional history exists Procedures Procedure Name Priority Date/Time Associated Diagnosis Comments LIPID PANEL W REFLEX MEASURED LDL Routine 11/05/2022 10:57 AM CDT Coronary artery disease involving [place] coronary artery of [place] heart with angina pectoris (HC) SCAN-COLONOSCOPY 06/03/2016 12:0 0 AM CDT from Last 3 Months or Most Recently Relevant to Health Maintenance Results * LIPID PANEL W REFLEX MEASURED LDL (11/05/2022 10:57 AM CDT) CHOLESTEROL,TOTAL 124 100 - 199 mg/dL 11/06/2022 1:03 PM CDT [facility] [employer] [facility] Comment: Cholesterol, Total Reference Ranges Desirable <200 mg/dL Borderline 200-239 mg/dL High >=240 mg/dL TRIGLYCERIDES 61 <150 mg/dL 11/06/2022 1:03 PM CDT [facility] [employer] [facility] HDL CHOLESTEROL 44 >40 mg/dL 1:03 PM CDT [facility] NON-HDL CHOLESTEROL 80 <145 mg/dl 11/06/2022 1:03 PM CDT [facility] CHOL/HDL RATIO 2.82 <4.50 11/06/2022 1:03 PM CDT [facility] LDL CHOLESTEROL 68 <=130 mg/dL 11/06/2022 1:03 PM CDT [facility] VLDL CHOLESTEROL 12 <=30 mg/dL 11/06/2022 1:03 PM CDT [facility] PROVIDER ORDERED STATUS RANDOM 11/06/2022 1:03 PM CDT [facility] Blood BLOOD SPECIMEN / Unknown Venipuncture / Unknown 11/05/2022 10:57 AM CDT 11/05/2022 10:57 AM CDT Elio Shay MD CHEMISTRY [facility] [address] [address], [place] * SCAN-COLONOSCOPY (06/03/2016 12:00 AM CDT) Scanner OTHER from Last 3 Months or Most Recently Relevant to Health Maintenance Advance Directives Documents on File Type Date Recorded Patient Operations Support Analyst Expl anation Healthcare Directive 11/03/2021 1:39 PM HE ALTHCARE DIRECTIVE/NFLD [facility] 11/03/2021 * Full Code (Latest Code Status on File) Date Activated Date Inactivated Comments 08/19/2015 11:49 AM 08/20/2015 12:26 PM Question Answer Comments Code Status Discussion: Not Discussed Care Teams National Facilities Manager Relationship Specialty Start Date End Date Elio Shay MD [address] [facility] [address] PCP - General Family Practice 01/25/23
--- NOTE | 2023-12-12 09:42 | W.ANESCHARGE ---
Anesthesia Charges Start Date/Time Anesthesia Start Date: 12/12/23 Anesthesia Start Time: 12:09 Stop Date/Time Anesthesia Stop Date: 12/12/23 Anesthesia Stop Time: 13:28 Summary Extremes of Age - Over 70 or under 1: MDA
--- NOTE | 2023-12-12 09:42 | W.PM.NB ---
Nerve Block Nerve Block Time Seen by Provider: 11:20 Date Seen: 12/12/23 Type of block requested by surgeon for post-operative analgesia: supraclavicular Side: right Time out performed: Yes Verification of patient name: Yes Verification of date of : Yes Site marking: site marked Name of person performing procedure: Bertin Continuous monitoring Was continuous monitoring of O2 sat, B/P, cafeteria monitor, recorded every 15 minutes?: Yes Procedure Checklist: sterile prep, needles and gloves Ultrasound guided. Images saved: Yes Medications given in 5ml increments after negative aspiration: Marcaine %: 0.25 mL: 15 Needle gauge: 22 Precedex (mcg): 25 Patient tolerated procedure well: Yes Block Charges Block Charge (with Pro Fee): Brachial Plexus Use of Ultrasound Machine for Block: Yes- US Guidance/pain block
[2023-12-12] MEDS: SODIUM CHLORIDE 0.9 % (FLUSH) 10 ML SYRINGE IVF (10:00)
[2023-12-12] MEDS: LACTATED RINGERS 1000 ML 1,000 ML 100 ML IV (10:00)
--- NOTE | 2023-12-12 11:23 | SUR.PREOP ---
TIME?OUT:?1115 PT/RN/MDA?VERIFICATION?OF?SURGICAL?SITE,?PROCEDURE,?AND?CONSENT OBTAINED?PRIOR?TO?INVASIVE?PROCEDURE.
[2023-12-12] MEDS: CEFAZOLIN 2 GM in 0.9 % SODIUM CHLORIDE Mini-bag 100 ML IVPB (12:17)
--- NOTE | 2023-12-12 12:26 | W.PM.H&PU ---
History & Physical Update History & Physical Update H&P Reviewed and patient assessed: No changes noted
--- NOTE | 2023-12-12 13:14 | P.ORPRC_ITS ---
Procedure Note Date of procedure: 12/12/23 Procedure: PREOPERATIVE DIAGNOSES: 1. Right shoulder subacromial impingement syndrome. 2. Right shoulder AC joint osteoarthritis, primary, severe 3. Right shoulder labral tear POSTOPERATIVE DIAGNOSES: 1. Right shoulder subacromial impingement syndrome. 2. Right shoulder AC joint osteoarthritis, primary, severe 3. Right shoulder labral tear NAME OF OPERATION: 1. Right shoulder arthroscopic distal clavicle excision. 2. Right shoulder arthroscopic limited glenohumeral debridement 3. Right shoulder arthroscopic subacromial decompression/partial acromioplasty SURGEON: Kenrick Giraldo MD BOW MAKER: Addi Mcclellan PA-C. Of note, an front office medical assistant was critical for this case to aide in patient positioning, suture manipulation, arm positioning, instrument positioning, and closure. ANESTHESIA: General plus preoperative supraclavicular block. IMPLANTS: None COMPLICATIONS: None evident INDICATIONS: The patient is a pleasant, 73-year-old male who has experienced right shoulder pain that has been increasing in recent time. Physical exam and imaging were consistent with a subacromial impingement syndrome and AC arthrosis. MRI was obtained indeed confirmed substantial AC joint capsular hypertrophy and edema of the distal clavicle as well as interstitial rotator cuff tearing. He had tried and failed nonoperative management. Given their findings, as well as the pain, and inadequate response to nonoperative management, recommendation was made for surgery. FINDINGS: Exam under anesthesia revealed stable shoulder with excellent range of motion. The diagnostic arthroscopy revealed healthy chondral surfaces of the glenohumeral joint. The Subscapularis tendon was intact with healthy attachment. The long head of the biceps tendon was intact. The rotator cuff tendon was found to be intact with a normal sail sign and no evidence of partial-thickness or full-thickness tearing. The labrum was intact and healthy without evidence of degenerative tearing or fraying. No loose bodies were identified within the pouch or subscapularis recess. PROCEDURE: Following a thorough discussion of risks, benefits, and alternatives, consent was obtained and the right shoulder was marked. The patient was brought to the operating room and placed supine on the operating table. Induction of anesthesia was completed after preoperative supraclavicular block was administered in preop holding. Appropriate time out was performed identifying proper patient, site, and procedure. 2 g IV Ancef was administered within 1 hour of incision preoperatively. The right upper extremity was prepped and draped in the appropriate sterile fashion using ChloraPrep prep. This was after the patient was positioned in the beach chair with their head in neutral alignment and all bony prominences well padded. The shoulder was insufflated with 20mL of normal saline via an 18g spinal needle from a posterior approach. An 11 blade skin incision allowed a blunt trochar to be inserted and diagnostic arthroscopy to be performed with the findings as noted above. An anterior portal was established with an outside in technique. This allowed the probe to be inserted and confirm the diagnostic arthroscopic findings. Limited glenohumeral debridement was performed including debridement of the anterior labral tissues with the torpedo shaver. Also the deep tissues of the supraspinatus rotator cuff tissue. This had low-grade partial tearing involving just 1-2 mm at most. We then went into the subacromial space. This revealed abundant bursitis and again a hypertrophied AC joint capsule. The shaver and [place] cautery device we re then inserted and allowed debridement of the subacromial bursa/subdeltoid bursa. Following this, the subacromial decompression/partial acromioplasty was performed with a 5.5 mm bur. This bur was then utilized for distal clavicle excision removing approximately 8 mm of distal clavicle. The camera was visualized within the AC joint space and found that the bone was completely removed from the more caudal to the more cephalad position confirming release/excision while sparing the superior and posterior capsule. Thereafter, the shaver was reinserted into the subacromial space and all remai delaney bony debris was excised. Instruments removed, excess fluid was drained, closure performed with 4 Monocryl and Steri-Strips. Dressings were applied. Sling was applied. The patient was awoken from anesthesia and transferred to the PACU in stable condition. PLAN: 1. Elbow, forearm, wrist and digit range of motion as tolerated. 2. Encouraged ice. 3. Hydromorphone/Dilaudid for pain as needed. 4. Sling at all times except for ROM and showering. 5. Follow up with PA visit in 1-2 weeks for wound check.
--- NOTE | 2023-12-12 13:30 | W.ANESCHARGE ---
Anesthesia Charges Start Date/Time Anesthesia Start Date: 12/12/23 Anesthesia Start Time: 12:09 Stop Date/Time Anesthesia Stop Date: 12/12/23 Anesthesia Stop Time: 13:28
--- NOTE | 2023-12-12 14:01 | SUR.PHASEI ---
PATIENT MET DISCHARGE CRITERIA PER ANESTHESIA
== END 2023-12-12 15:00 | disposition home or self-care (01) ==
LOC: OR 09:00
PROVIDERS: PCP Family Medicine; Visit Provider Orthopaedic Surgery Sports Medicine
PROC: (CPT 29805; principal; 2023-12-12 11:15)
DX: M75.41 Impingement syndrome of right shoulder (principal); M19.011 Primary osteoarthritis, right shoulder; S43.431A Superior glenoid labrum lesion of right shoulder, initial encounter; G89.18 Other acute postprocedural pain
CPT/HCPCS: 29826; 29824; 29822; 01630; 64415; 76942; 99100; J0330; J0665; J0690; J2250; J2371; J2405; J2704; J3010; J7120; L3670

== ENCOUNTER 2025-01-14 12:48 | Outpatient (CLI) | payer MEDICARE, OTHER, SELFPAY ==
--- NOTE | 2025-01-14 13:00 | MR_ITS ---
[address] [address] Phone:?[phone] Fax:?[phone] Referring Physician Information: Kenrick Giraldo M.D. [id number] [facility] [address] Phone:?[phone] Fax:?[phone] Patient:Sammy De La Garza D.O.B:?1950 Sex:?Male Phone:?[phone] [facility] MRN:?[id number] Exam Date:?01/14/2025 EXAM: MRI of the RIGHT KNEE, without contrast CLINICAL INFORMATION: Male, 74 years old, with right knee soreness. INDICATION: Evaluate for internal derangement. PRIOR SURGERY: Unspecified history of knee surgery. PLAIN FILMS: Knee radiographs dated 12/13/2024. COMPARISONS: Right knee MRI dated 12/14/2016. TECHNICAL INFORMATION: Using a 1.5T MR scanner and a localizing surface coil: sagittals: PD, PDFS, T2 oblique coronals: PD, STIR axials: PD, T2FS SEDATION: None CONTRAST: None FINDINGS: Knee joint: Effusion: Mild-moderate right knee effusion. Popliteal cyst: None. Loose bodies: None. However, there is a 9 x 12 x 17 mm region of ill-defined soft tissue thickening in the superior aspect of the intercondylar notch (axial T2FS series 4 image 13 and coronal PD series 7 image 25).o Subcutaneous and extra-articular soft tissues: Unremarkable. Ligaments: ACL: Marked thickening and abnormal signal throughout the ACL with chronic full or near full-thickness tearing of the ligament, proximally (coronal STIR series 8 image 24 and axial T2FS series 4 image 15). PCL: Intact PCL, without acute or chronic injury. MCL: Mild periligamentous edema is present along the superficial and deep surfaces of the superficial MCL, without MCL tear (coronal STIR series 8 image 25). LCL: Intact LCL, without injury. Posterolateral corner: No posterolateral corner soft tissue injury. Popliteus, biceps femoris, iliotibial band, popliteofibular ligament and lateral gastrocnemius are intact. Posteromedial corner: Mild semimembranosus tendinopathy, without tear. Pes anserine tendons and posterior oblique ligament are without injury, tendinopathy or bursitis. Extensor mechanism: Patellar tendon: Intact, without tendinopathy. Quadriceps tendon: Intact, without tendinopathy. Retinacula: Medial and lateral retinacula are intact. Fat pads: Postoperative scarring is noted within Hoffa's fat pad. Medial compartment: Medial meniscus: Complex apical free edge and superior surface tearing of the posterior horn and body measuring 3.7 cm (sagittal PDFS series 6 images 20-26 and coronal STIR series 8 images 20-25). Meniscal extrusion measures 5 mm. A 1.6 x 0.6 x 0.7 cm meniscal cyst is present at the posterior horn/root junction (axial T2FS series 4 image 19 and sagittal PDFS series 6 image 18). Abnormal signal and irregularity is present throughout the posterior meniscocapsular junction. Medial femoral condyle & tibial plateau: Broad-based grade III chondromalacia throughout the central, weightbearing aspect of the medial compartment, mild marginal osteophytosis. Lateral compartment: Lateral meniscus: Intrasubstance degeneration and ill-defined [id number] grade tearing of the lateral meniscal posterior root measuring 1.3 cm (sagittal PDFS series 6 images 12-15). Lateral femoral condyle & tibial plateau: Broad-based grade II/III chondromalacia throughout the central, weightbearing aspect of the lateral compartment, mild marginal osteophytosis. Patellofemoral joint: Patella: Generalized grade II/III chondromalacia of the patella. Trochlea: Generalized grade II/III chondromalacia of the trochlea, with mild marginal osteophytosis. Proximal tibiofibular joint: Unremarkable, without evidence of ligament sprain injury, joint effusion or adjacent marrow edema. Bones: No stress/occult fractures or other marrow edema/pathology. IMPRESSION: 1. Complex apical free edge and superior surface tearing of the posterior horn and body of the medial meniscus measuring 3.7 cm, with 5 mm of meniscal extrusion and a 1.6 x 0.6 x 0.7 cm parameniscal cyst at the posterior horn/root junction. This has progressed since the prior study dated 12/14/2016. 2. Intrasubstance degeneration and ill-defined [id number] tearing of the lateral meniscal posterior root measuring 1.3 cm, which appears much the prior study. 3. 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 4. Grade 1 MCL sprain, without tear. 5. Tricompartmental osteoarthritis of the right knee: -Mild-moderate osteoarthritis of the medial compartment -Mild osteoarthritis of the lateral and patellofemoral compartment. -These findings have progressed since the prior study. 6. Mild-moderate knee joint effusion with a 9 x 12 x 17 mm region of nodular soft tissue thickening in the superior aspect of the intercondylar notch, which may reflect nodular synovitis. 7. No PCL or LCL sprain/tear. BC Electronically signed on 01/15/2025 11:22:00 AM by Rivera Michaels M.D.
== END 2025-01-14 12:49 | disposition home or self-care (01) ==
LOC: MRI 12:50
PROVIDERS: PCP Family Medicine; Visit Provider Orthopaedic Surgery Sports Medicine
DX: S83.231A Complex tear of medial meniscus, current injury, right knee, initial encounter (principal); S83.271A Complex tear of lateral meniscus, current injury, right knee, initial encounter; S83.411A Sprain of medial collateral ligament of right knee, initial encounter; M17.11 Unilateral primary osteoarthritis, right knee; M25.461 Effusion, right knee; M67.861 Other specified disorders of synovium, right knee; M25.561 Pain in right knee
CPT/HCPCS: 73721